=== PATIENT | male | born 1970 | race African-American/Black ===

== ENCOUNTER 2018-11-19 02:06 | Emergency (ER) | payer OTHER ==
[~2018-11-19] VITALS: Ht 182.9 cm; Wt 100.0 kg
[2018-11-19] MEDS ORDERED: NITROGLYCERIN OINT 1GM/INCH UDPKT TD ONE (03:30)
[2018-11-19 03:38] LABS: BASOPHILS % 0.3 % (0.0-2.0); EOSINOPHILS % 0.6 % (0.0-5.0); HEMATOCRIT. 38.4 % (42.0-52.0); HEMOGLOBIN. 12.6 g/dL (14.0-18.0); LYMPHOCYTES % 16.1 % (20.0-50.0); MEAN CORPUSCULAR HEMOGLOBIN 28.2 pg (28.0-32.0); MEAN CORPUSCULAR VOLUME 85.6 fL (80.0-94.0); MONOCYTES % 6.4 % (2.0-8.0); NEUTROPHILS % 76.6 % (40.0-76.0); PLATELET 223 x1000/uL (130-400); RED BLOOD CELL COUNT 4.49 mill/uL (4.7-6.1); RED CELL DISTRIBUTION WIDTH 13.8 % (11.6-14.6)
[2018-11-19 03:41] LABS: CHLORIDE 102 mEq/L (98-107)
[2018-11-19 06:58] VITALS: BP 105/51
== END 2018-11-19 07:03 | disposition short-term general hospital (02) ==
LOC: ER 02:06 → CANBEDREQ 07:47
DX: R07.89 Other chest pain (principal); E78.00 Pure hypercholesterolemia, unspecified; I10 Essential (primary) hypertension; I25.2 Old myocardial infarction
CPT/HCPCS: 36415; 71045; 82962; 83880; 84484; 85379; 93005; 99285